=== PATIENT | female | born 1995 | race Caucasian/White ===

== ENCOUNTER 2017-12-10 07:11 | Inpatient (IN) | payer OTHER ==
[2017-12-10] VITALS (12 sets, daily range): BP systolic 103–119; BP diastolic 63–70; PULSE 20–92; RESP 18; TEMP 97.6–98.1; O2SAT 98–99
[~2017-12-10] VITALS: Ht 175.3 cm; Wt 83.0 kg
[~2017-12-10 07:11] MED LIST: D200CAP PO; DOCO200C PO; [UNRECOGNIZED DRUG - OTHER] PO
[2017-12-10] MEDS ORDERED: OXYTOCIN 30 UNITS-500ML PREMIX 500 ML IV ONE ×2 (07:30→15:00)
[2017-12-10] MEDS ORDERED: CITRIC ACID-SODIUM CITRATE LIQ 30 ML UDC PO SCH (07:30)
[2017-12-10] MEDS ORDERED: LACTATED RINGER'S 1000 ML INJ 1,000 ML IV SCH ×2 (07:30→19:53)
[2017-12-10] MEDS ORDERED: LIDOCAINE HCL 1% 50 ML VIAL INFIL PRN (07:30)
[2017-12-10] MEDS ORDERED: SODIUM CHLORID 0.9% 500 ML INJ 500 ML IV PRN (07:30)
[2017-12-10] MEDS ORDERED: OXYTOCIN 30 UNITS-500ML PREMIX 500 ML IV PRN ×2 (07:30→20:00)
[2017-12-10] MEDS ORDERED: MINERAL OIL 10 ML VIAL TOPICAL PRN (07:30)
[2017-12-10] MEDS ORDERED: LIDOCAINE HCL 1% 50 ML VIAL I-DERMAL PRN (07:30)
[2017-12-10] MEDS ORDERED: SODIUM CHLOR 0.9% 1000 ML INJ 1,000 ML IV PRN (07:50)
[2017-12-10] MEDS ORDERED: LIDOCAINE HCL 1% PF 5 ML AMPULE ONE (08:40)
[2017-12-10 09:14] LABS: AUTOMATED NEUTROPHIL # 5.5 TH/MM3 (1.8-7.7); BASOPHIL % 0.2 % (0.0-2.0); EOSINOPHIL # 0.1 TH/MM3 (0-0.4); EOSINOPHIL % 0.8 % (0.0-4.0); HEMATOCRIT 38.9 % (35.0-46.0); HEMOGLOBIN 13.2 GM/DL (11.6-15.3); LYMPH % 18.1 % (9.0-44.0); LYMPHOCYTE # 1.3 TH/MM3 (1.0-4.8); MEAN CELL VOLUME 87.7 FL (80.0-100.0); MEAN CORPUSCULAR HEMOGLOBIN 29.8 PG (27.0-34.0); MEAN PLATELET VOLUME 7.5 FL (7.0-11.0); MONO % 6.7 % (0.0-8.0); MONOCYTE # 0.5 TH/MM3 (0-0.9); NEUT % 74.2 % (16.0-70.0); PLATELET COUNT 195 TH/MM3 (150-450); RED BLOOD COUNT 4.43 MIL/MM3 (4.00-5.30); RED CELL DISTRIBUTION WIDTH 14.5 % (11.6-17.2); WHITE BLOOD COUNT 7.4 TH/MM3 (4.0-11.0)
[2017-12-10 09:25] LABS: BACTERIA, URINE OCC /hpf; BILIRUBIN, URINE NEG (NEG); BLOOD, URINE LARGE (NEG); GLUCOSE,URINE NEG (NEG); KETONE, URINE NEG (NEG); NITRITE,URINE NEG (NEG); SQUAMOUS EPITHELIAL CELL URINE 3 /hpf (0-5); URINE COLOR LIGHT-YELLOW (YELLW/STRAW); URINE LEUKOCYTE ESTERASE SMALL (NEG)
[2017-12-10] MEDS ORDERED: PREN29TA PO (09:53)
[2017-12-10] MEDS: LACTATED RINGER'S 1000 ML INJ 1,000 ML IV PRN ×2 (10:05→11:54)
[2017-12-10] MEDS ORDERED: fentaNYL 2MCG-BUPIV 0.125% INJ 100 ML ONE (11:03)
[2017-12-10] MEDS ORDERED: TERBUTALINE INJ 1 MG/ML AMP ONE (11:03)
[2017-12-10] MEDS ORDERED: ONDANSETRON HCL 4 MG/2 ML VIAL IV ONE (12:00)
[2017-12-10] MEDS ORDERED: OXYTOCIN 10 UNIT/ML AMP IV ONE (12:00)
[2017-12-10] MEDS ORDERED: LACTATED RINGER'S 1000 ML INJ 2,000 ML IV ONE (12:00)
[2017-12-10] MEDS ORDERED: LIDOCAINE 2%/EPINEPHrine PF 1:200,000 20ML SDV OTHER ONE (12:00)
[2017-12-10] MEDS ORDERED: DEXAMETHASONE SOD PHOS 4 MG/ML VIAL IV ONE (12:00)
[2017-12-10] MEDS ORDERED: ceFAZolin 2 GM PREMIX 50 ML IV SCH (13:30)
[2017-12-10] MEDS ORDERED: LACTATED RINGER'S 1000 ML IV ONE (13:30)
[2017-12-10] MEDS ORDERED: LACTATED RINGER'S 1000 ML IV SCH (13:30)
[2017-12-10] MEDS ORDERED: ACETAMINOPHEN 1000 MG/100 ML 100 ML IV ONE ×2 (14:17→15:00)
[2017-12-10] MEDS ORDERED: MORPHINE SULFATE PF 5 MG/10 ML VIAL ONE (14:17)
--- NOTE | 2017-12-10 14:57 | PD.OB.DELI ---
Procedure Note Section Procedure Pre Op Diagnosis: (1) Delivered by section (2) Labor and delivery affected by breech presentation Post Op Diagnosis: Performed by Nancy Carlos Procedure: Primary Low Transverse Sec Indication for delivery: malposition Informed consent obtained: For anesthesia, For procedure Confirmed correct: Patient, Procedure, Site, Time-out taken Anesthesia: Epidural Medication prior to procedure: As documented in eMAR Monitoring during procedure: Blood pressure monitoring, brainer, monitor Urinary catheter: Inserted using sterile technique, To dependent drainage Sterile preparation: Duraprep, In usual fashion Position: Supine with wedge to right side Operative Features Skin Incision: Pfannenstiel Uterine Incision: Low transverse w/knife / blunt ext Presentation: Brow presentation Delivery date: Dec 10, 2017 Delivery time: 14:56 Delivery of infant: Assisted Infant: Female One Minute : 8 Five Minute : 9 Weight: 7 3 Status of : Viable, Cord blood Placenta delivered: Intact Medications: Antibiotics Estimated blood loss: 600 Procedure tolerated: Well Maternal Condition: Stable Condition: Stable Procedure in detail dictated Nancy Carlos MD Dec 10, 2017 14:57
[2017-12-10] MEDS ORDERED: DOCUSATE SODIUM 50 MG/SENNA 8.6 MG TAB PO PRN (15:00)
[2017-12-10] MEDS ORDERED: SODIUM CHLORIDE 0.9% FLUSH 10 ML FLUSH IV FLUSH PRN (15:00)
[2017-12-10] MEDS ORDERED: ONDANSETRON HCL 4 MG/2 ML VIAL IV PUSH PRN (15:00)
[2017-12-10] MEDS ORDERED: ZOLPIDEM TARTRATE 5 MG TAB PO PRN (15:00)
--- NOTE | 2017-12-10 15:58 | MP ---
cc: Nancy Carlos MD DATE OF OPERATION: 12/10/2017 DATE OF PROCEDURE: 12/10/2017 PREOPERATIVE DIAGNOSIS: Active labor with incomplete breech diagnosed during labor. POSTOPERATIVE DIAGNOSIS: Active labor with incomplete breech diagnosed during labor. PROCEDURE PERFORMED: Primary low transverse segment section. ANESTHESIA: Epidural with Duramorph. SURGEON: Nancy Carlos MD SKETCH LINER: Fidelina Velez, MS3 FINDINGS: A living female with Apgars of 8 at 1 and 9 at 5 was delivered from an complete breech position, right sacrum anterior, with clear fluid and no body cord. Weight was 7 pounds 3 ounces. The scalp electrode actually appeared to be placed in the infant's scalp so it is possible that even with rupture of membranes this baby had gone from cephalic to breech during labor. The placenta was delivered manually intact with a 3-vessel cord. Sponge, instrument and needle count were correct. Blood loss was average. DESCRIPTION OF PROCEDURE: The patient was scheduled for an induction this morning, but came in in active labor at 6 cm. Membranes were ruptured and the 's head did appear to be cephalic. Later on, she had a deceleration and the nurses placed a scalp electrode; however, when I checked her at 8 cm, the baby was breech. This was explained to the family and she was prepared for . She was taken to the operating room. Her epidural was reinforced and Duramorph was placed. She already had a Aguilar catheter in, sequentials were placed, she was given 2 grams of Ancef, she was placed in dorsal supine position with weight off the vena cava, prepped and draped and a timeout was performed. After assuring adequate analgesia, a Pfannenstiel incision was made with a knife and carried down through to the rectus fascia. The rectus fascia was incised and taken off the rectus muscle. The rectus muscle was in the midline. The parietal peritoneum was entered sharply and a bladder flap was created. The uterus was incised and the incision was extended bluntly in the vertical fashion, encountering first the baby's foot from the right leg, which was in the cross-legged position. The left leg was delivered with classic Pinard maneuvers being straight up and then the arms were delivered and then the head. The cord was clamped x 2 after 45 seconds and cut and she was handed off to the neonatology team in attending. Her Apgars were 8 at 1 and 9 at 5. Her weight was 7 pounds 3 ounces. The placenta will be donated to [facility]. The uterus was exteriorized, closed with a chromic in a running interlocking fashion with a second horizontal imbricating layer. It was replaced in the abdominal cavity. Irrigation was performed. The rectus muscle was approximated. The fascia was closed with 1 Vicryl. The subcutaneous tissue was irrigated. The space was obliterated with 3-0 plain and the skin was closed with 4-0 Vicryl on a Jase needle. Estimated blood loss was average. Sponge, instrument and needle count were correct. She tolerated the procedure well and went to the recovery room stable. MD FEI Fernandez/NADER , 03:34 PM , 03:57 PM
[2017-12-10] MEDS ORDERED: IBUP-232 PO (17:42)
--- NOTE | 2017-12-10 17:43 | HHI.DCPOC ---
Discharge Care Plan Diagnosis: (1) Delivered by section Your Health Problems Are: delivery Report Symptoms to Your Doctor -Temperature above 100.5 degrees -Redness, of incision or excessive or foul smelling drainage -Unusual pain or calf pain -Increased vaginal bleeding -Painful or difficulty urinating -Feelings of extreme sadness or anxiety after 2 weeks Goals to Promote Your Health * To prevent worsening of your condition and complications * To maintain your health at the optimal level Directions to Meet Your Goals Take your medications as prescribed Follow your dietary instruction Follow activity as directed Ensure plenty of rest for recovery Drink fluids for hydration Keep your appointments as scheduled Take your immunizations and boosters as scheduled If your symptoms worsen call your PCP, if no PCP go to Urgent Care Center or Emergency Room Smoking is Dangerous to Your Health. Avoid second hand smoke Call the 24-hour crisis hotline for domestic abuse at Jeffrey Fish MD Dec 10, 2017 17:43
[2017-12-10] MEDS: SODIUM CHLORIDE 0.9% FLUSH 10 ML FLUSH IV FLUSH SCH (21:00)
[2017-12-11] VITALS (9 sets, daily range): BP systolic 105–112; BP diastolic 53–63; PULSE 68–92; RESP 16–20; TEMP 98.2–98.9; O2SAT 96–98
[2017-12-11 06:00] LABS: AUTOMATED NEUTROPHIL # 12.1 TH/MM3 (1.8-7.7); BASOPHIL % 0.1 % (0.0-2.0); HEMOGLOBIN 11.9 GM/DL (11.6-15.3); LYMPH % 8.2 % (9.0-44.0); LYMPHOCYTE # 1.1 TH/MM3 (1.0-4.8); MEAN CELL VOLUME 87.9 FL (80.0-100.0); MEAN CORPUSCULAR HEMOGLOBIN 29.8 PG (27.0-34.0); MEAN CORPUSCULAR HGB CONC 33.9 % (32.0-36.0); MEAN PLATELET VOLUME 7.7 FL (7.0-11.0); MONO % 3.7 % (0.0-8.0); MONOCYTE # 0.5 TH/MM3 (0-0.9); PLATELET COUNT 166 TH/MM3 (150-450); RED BLOOD COUNT 3.99 MIL/MM3 (4.00-5.30); RED CELL DISTRIBUTION WIDTH 14.3 % (11.6-17.2); WHITE BLOOD COUNT 13.8 TH/MM3 (4.0-11.0)
[2017-12-11] MEDS: IBUPROFEN 600 MG TAB PO PRN ×3 (07:10→22:33)
[2017-12-11] MEDS: oxyCODONE/ACETAMINOPHEN 5 MG/325 MG TAB PO PRN ×4 (07:11→22:32)
--- NOTE | 2017-12-11 08:07 | HHI.OB ---
Subjective Post Operative Day: 1 Remarks doing very well with nursing pain controlled will get TDAP Objective Vitals/I&O Vital Signs Date Time Temp Pulse Resp B/P (MAP) Pulse Ox O2 Delivery O2 Flow Rate FiO2 12/11/17 04:50 18 12/11/17 04:00 98.2 92 16 105/63 (77) 98 12/11/17 01:17 18 12/11/17 00:40 16 12/11/17 00:00 98.2 18 96 12/11/17 00:00 80 105/53 (70) 12/10/17 23:00 18 12/10/17 22:15 18 12/10/17 21:00 20 18 12/10/17 20:00 98.1 68 18 117/70 (86) 98 12/10/17 16:46 79 18 112/64 (80) 99 12/10/17 16:46 98.1 12/10/17 11:50 91 112/66 (81) 12/10/17 11:50 86 12/10/17 11:49 97.6 12/10/17 11:45 91 115/66 (82) 12/10/17 11:45 89 12/10/17 11:40 88 118/63 (81) 12/10/17 11:40 92 12/10/17 11:35 85 12/10/17 11:35 88 119/64 (82) 12/10/17 11:30 88 12/10/17 11:30 83 112/65 (81) 12/10/17 09:13 64 103/64 (77) Result Diagram: 12/11/17 0508 Objective Remarks GENERAL: Well-nourished, well-developed patient. CARDIOVASCULAR: Regular rate and rhythm without murmurs, gallops, or rubs. RESPIRATORY: Breath sounds equal bilaterally. No accessory muscle use. ABDOMEN/GI: Abdomen soft, non-tender, bowel sounds present. bandage: Clean, dry and intact. Fundus: Firm, non-tender at umbilicus. GENITOURINARY: Light to moderate bleeding. EXTREMITIES: No cyanosis or edema, non-tender, without signs of DVT. Medications and IVs Current Medications Medications (Trade) Dose Ordered Sig/Tim Route Start Time Stop Time Status Last Admin Sodium Chloride 1,000 ml @ 100 mls/hr Q10H PRN IV 12/10/17 07:50 (Xylocaine 1% Inj (50 ml)) 0.1 ml UNSCH X1 PRN I-DERMAL 12/10/17 07:30 12/13/17 07:29 (Bicitra Liq) 30 ml RETURNER PO 12/10/17 07:30 12/14/17 07:29 12/10/17 13:22 (Xylocaine 1% Inj (50 ml)) 10 ml UNSCH X1 PRN INFIL 12/10/17 07:30 12/12/17 07:29 (Muri-Lube Oil) 10 ml UNSCH PRN TOPICAL 12/10/17 07:30 Oxytocin 500 ml @ 0 mls/hr TITRATE PRN IV 12/10/17 07:30 Lactated Ringer's 1,000 ml @ 150 mls/hr Q6H40M IV 12/10/17 13:30 Cefazolin Sodium/ Dextrose 50 ml @ 100 mls/hr RETURNER IV 12/10/17 13:30 12/13/17 13:29 12/10/17 13:23 Lactated Ringer's 1,000 ml @ 100 mls/hr Q10H IV 12/10/17 19:53 12/11/17 15:52 12/10/17 21:00 Oxytocin 500 ml @ 100 mls/hr UNSCH X1 PRN IV 12/10/17 20:00 12/11/17 19:59 (NS Flush) 2 ml BID IV FLUSH 12/10/17 21:00 (NS Flush) 2 ml UNSCH PRN IV FLUSH 12/10/17 15:00 (Mylicon Chew) 80 mg QID PRN PO 12/10/17 15:00 (Motrin) 600 mg Q6H PRN PO 12/10/17 15:00 12/11/17 07:10 (Percocet 5-325 Mg) 1 tab Q4H PRN PO 12/10/17 15:00 12/11/17 07:11 (Percocet 5-325 Mg) 2 tab Q4H PRN PO 12/10/17 15:00 (Sonia-Colace) 2 tab Q12H PRN PO 12/10/17 15:00 (Ambien) 5 mg HS PRN PO 12/10/17 15:00 (M-M-R Ii Inj) 0.5 ml ONCE ONCE SQ 12/11/17 16:00 12/11/17 16:01 (Boostrix Inj) 0.5 ml ONCE ONCE IM 12/11/17 16:00 12/11/17 16:01 (Zofran Inj) 4 mg Q6H PRN IV PUSH 12/10/17 15:00 Nancy Carlos MD Dec 11, 2017 08:07
--- NOTE | 2017-12-11 08:20 | HHI.OB ---
Subjective Post Operative Day: 1 Remarks Overall doing well, having concerns about pain control, fully just removed, has not ambulated yet, having itching following her spinal, tolerating p.o. no nausea or vomiting. Objective Vitals/I&O Vital Signs Date Time Temp Pulse Resp B/P (MAP) Pulse Ox O2 Delivery O2 Flow Rate FiO2 12/11/17 04:50 18 12/11/17 04:00 98.2 92 16 105/63 (77) 98 12/11/17 01:17 18 12/11/17 00:40 16 12/11/17 00:00 98.2 18 96 12/11/17 00:00 80 105/53 (70) 12/10/17 23:00 18 12/10/17 22:15 18 12/10/17 21:00 20 18 12/10/17 20:00 98.1 68 18 117/70 (86) 98 12/10/17 16:46 79 18 112/64 (80) 99 12/10/17 16:46 98.1 12/10/17 11:50 91 112/66 (81) 12/10/17 11:50 86 12/10/17 11:49 97.6 12/10/17 11:45 91 115/66 (82) 12/10/17 11:45 89 12/10/17 11:40 88 118/63 (81) 12/10/17 11:40 92 12/10/17 11:35 85 12/10/17 11:35 88 119/64 (82) 12/10/17 11:30 88 12/10/17 11:30 83 112/65 (81) 12/10/17 09:13 64 103/64 (77) Result Diagram: 12/11/17 0508 Objective Remarks GENERAL: Well-nourished, well-developed patient. CARDIOVASCULAR: Regular rate and rhythm without murmurs, gallops, or rubs. RESPIRATORY: Breath sounds equal bilaterally. No accessory muscle use. ABDOMEN/GI: Abdomen soft, non-tender, bowel sounds present. bandage: Clean, dry and intact. Fundus: Firm, non-tender at umbilicus. GENITOURINARY: Light to moderate bleeding. EXTREMITIES: No cyanosis or edema, non-tender, without signs of DVT. Medications and IVs Current Medications Medications (Trade) Dose Ordered Sig/Tim Route Start Time Stop Time Status Last Admin Sodium Chloride 1,000 ml @ 100 mls/hr Q10H PRN IV 12/10/17 07:50 (Xylocaine 1% Inj (50 ml)) 0.1 ml UNSCH X1 PRN I-DERMAL 12/10/17 07:30 12/13/17 07:29 (Bicitra Liq) 30 ml SHIPYARD PAINTER HELPER PO 12/10/17 07:30 12/14/17 07:29 12/10/17 13:22 (Xylocaine 1% Inj (50 ml)) 10 ml UNSCH X1 PRN INFIL 12/10/17 07:30 12/12/17 07:29 (Muri-Lube Oil) 10 ml UNSCH PRN TOPICAL 12/10/17 07:30 Oxytocin 500 ml @ 0 mls/hr TITRATE PRN IV 12/10/17 07:30 Lactated Ringer's 1,000 ml @ 150 mls/hr Q6H40M IV 12/10/17 13:30 Cefazolin Sodium/ Dextrose 50 ml @ 100 mls/hr SHIPYARD PAINTER HELPER IV 12/10/17 13:30 12/13/17 13:29 12/10/17 13:23 Lactated Ringer's 1,000 ml @ 100 mls/hr Q10H IV 12/10/17 19:53 12/11/17 15:52 12/10/17 21:00 Oxytocin 500 ml @ 100 mls/hr UNSCH X1 PRN IV 12/10/17 20:00 12/11/17 19:59 (NS Flush) 2 ml BID IV FLUSH 12/10/17 21:00 (NS Flush) 2 ml UNSCH PRN IV FLUSH 12/10/17 15:00 (Mylicon Chew) 80 mg QID PRN PO 12/10/17 15:00 (Motrin) 600 mg Q6H PRN PO 12/10/17 15:00 12/11/17 07:10 (Percocet 5-325 Mg) 1 tab Q4H PRN PO 12/10/17 15:00 12/11/17 07:11 (Percocet 5-325 Mg) 2 tab Q4H PRN PO 12/10/17 15:00 (Sonia-Colace) 2 tab Q12H PRN PO 12/10/17 15:00 (Ambien) 5 mg HS PRN PO 12/10/17 15:00 (M-M-R Ii Inj) 0.5 ml ONCE ONCE SQ 12/11/17 16:00 12/11/17 16:01 (Boostrix Inj) 0.5 ml ONCE ONCE IM 12/11/17 16:00 12/11/17 16:01 (Zofran Inj) 4 mg Q6H PRN IV PUSH 12/10/17 15:00 Assessment/Plan Assessment and Plan 22-year-old status post primary LTCS at 38w5d secondary to malpresentation. 1. POD #1: Afebrile, vital signs stable, output appropriate, AM hemoglobin noted and appropriate, continue routine postoperative and care, encourage ambulation today, and educated her to ask for 2 tabs of percocet if pain not well controlled with 1. Will add vistaril for itching, anticipate discharge home in the next 48 hours. - Female Jeffrey Fish MD Dec 11, 2017 08:19
[2017-12-11] MEDS ORDERED: hydrOXYzine PAMOATE 25 MG CAP PO PRN (08:30)
[2017-12-11] MEDS ORDERED: MEASLES, MUMPS, RUBELLA VACCINE 0.5 ML VIAL SQ ONE (16:00)
[2017-12-11] MEDS ORDERED: DIPHTH/TETANUS/ACEL PERTUSSIS (BOOSTER) 0.5 ML VIAL/PFS IM ONE (16:00)
[2017-12-11] MEDS: SODIUM CHLORIDE 0.9% FLUSH 10 ML FLUSH IV FLUSH SCH (21:00)
[2017-12-11] MEDS: DOCUSATE SODIUM 50 MG/SENNA 8.6 MG TAB PO SCH (22:32)
[2017-12-12] MEDS: oxyCODONE/ACETAMINOPHEN 5 MG/325 MG TAB PO PRN ×6 (00:16→23:51)
[2017-12-12] MEDS: IBUPROFEN 600 MG TAB PO PRN ×4 (04:10→23:51)
--- NOTE | 2017-12-12 08:37 | HHI.OB ---
Subjective Post Operative Day: 2 Remarks Doing well, pain still an issue for her, however she seems to be ambulating in the room, in no obvious discomfort, breast-feeding, vaginal bleeding less than menses, tolerating a diet, voiding. She is nursing her child in the chair during this encounter. Objective Vitals/I&O Vital Signs Date Time Temp Pulse Resp B/P (MAP) Pulse Ox O2 Delivery O2 Flow Rate FiO2 12/11/17 20:00 98.3 68 18 105/55 (72) 96 12/11/17 15:00 18 Result Diagram: 12/11/17 0508 Objective Remarks GENERAL: Well-nourished, well-developed patient. CARDIOVASCULAR: Regular rate and rhythm without murmurs, gallops, or rubs. RESPIRATORY: Breath sounds equal bilaterally. No accessory muscle use. ABDOMEN/GI: Abdomen soft, non-tender, bowel sounds present. GENITOURINARY: Light to moderate bleeding. EXTREMITIES: No cyanosis or edema, non-tender, without signs of DVT. Medications and IVs Current Medications Medications (Trade) Dose Ordered Sig/Tim Route Start Time Stop Time Status Last Admin Sodium Chloride 1,000 ml @ 100 mls/hr Q10H PRN IV 12/10/17 07:50 (Xylocaine 1% Inj (50 ml)) 0.1 ml UNSCH X1 PRN I-DERMAL 12/10/17 07:30 12/13/17 07:29 (Bicitra Liq) 30 ml DIRECTOR OF AVIATION PO 12/10/17 07:30 12/14/17 07:29 12/10/17 13:22 (Muri-Lube Oil) 10 ml UNSCH PRN TOPICAL 12/10/17 07:30 Oxytocin 500 ml @ 0 mls/hr TITRATE PRN IV 12/10/17 07:30 Lactated Ringer's 1,000 ml @ 150 mls/hr Q6H40M IV 12/10/17 13:30 Cefazolin Sodium/ Dextrose 50 ml @ 100 mls/hr DIRECTOR OF AVIATION IV 12/10/17 13:30 12/13/17 13:29 12/10/17 13:23 (NS Flush) 2 ml BID IV FLUSH 12/10/17 21:00 12/11/17 21:00 (NS Flush) 2 ml UNSCH PRN IV FLUSH 12/10/17 15:00 (Mylicon Chew) 80 mg QID PRN PO 12/10/17 15:00 (Motrin) 600 mg Q6H PRN PO 12/10/17 15:00 12/12/17 04:10 (Percocet 5-325 Mg) 1 tab Q4H PRN PO 12/10/17 15:00 12/12/17 00:16 (Percocet 5-325 Mg) 2 tab Q4H PRN PO 12/10/17 15:00 12/12/17 04:11 (Ambien) 5 mg HS PRN PO 12/10/17 15:00 (Zofran Inj) 4 mg Q6H PRN IV PUSH 12/10/17 15:00 (Vistaril) 25 mg Q6H PRN PO 12/11/17 08:30 (Sonia-Colace) 2 tab Q12HR PO 12/11/17 15:00 12/11/17 22:32 Assessment/Plan Assessment and Plan 22-year-old status post primary LTCS at 38w5d secondary to malpresentation. 1. POD #2: Afebrile, vital signs stable, continue routine postop care, anticipate discharge home tomorrow. If patient desires may increase Percocet to 7.5's. - Female Jeffrey Fish MD Dec 12, 2017 08:36
[2017-12-12 08:38] VITALS: BP 112/72; PULSE 80; RESP 20; TEMP 97.9
[2017-12-12] MEDS: DOCUSATE SODIUM 50 MG/SENNA 8.6 MG TAB PO SCH ×2 (09:08→23:51)
[2017-12-12] MEDS: SIMETHICONE 80 MG CHEWABLE TAB PO PRN ×2 (16:52→23:51)
[2017-12-12 19:53] VITALS: BP 135/78; PULSE 89; RESP 18; TEMP 97.6
[2017-12-13] MEDS: oxyCODONE/ACETAMINOPHEN 5 MG/325 MG TAB PO PRN ×2 (00:56→06:24)
[2017-12-13] MEDS: SIMETHICONE 80 MG CHEWABLE TAB PO PRN ×2 (06:25→21:31)
[2017-12-13] MEDS: IBUPROFEN 600 MG TAB PO PRN (06:25)
[2017-12-13 08:00] VITALS: BP 118/74; PULSE 87; RESP 16; TEMP 97.7
[2017-12-13] MEDS ORDERED: PERC5TAB12 PO (08:24)
--- NOTE | 2017-12-13 08:39 | HHI.OB ---
Subjective Post Operative Day: 3 Remarks doing fairly well, pain control is still an issue, difficult to ambulate due to ambulate, pain L>R lower quadrant, baby up all night, voiding, TPO, no n/v, no flatus or BM yet, VB < menses Objective Vitals/I&O Vital Signs Date Time Temp Pulse Resp B/P (MAP) Pulse Ox O2 Delivery O2 Flow Rate FiO2 12/12/17 19:53 97.6 89 18 135/78 (97) 12/12/17 08:38 80 112/72 (85) 12/12/17 08:38 97.9 20 Result Diagram: 12/11/17 0508 Objective Remarks GENERAL: Well-nourished, well-developed patient. CARDIOVASCULAR: Regular rate and rhythm without murmurs, gallops, or rubs. RESPIRATORY: Breath sounds equal bilaterally. No accessory muscle use. ABDOMEN/GI: Abdomen soft, non-tender, bowel sounds present. Incision: C/D/I GENITOURINARY: Light to moderate bleeding. EXTREMITIES: No cyanosis or edema, non-tender, without signs of DVT. Medications and IVs Current Medications Medications (Trade) Dose Ordered Sig/Tim Route Start Time Stop Time Status Last Admin Sodium Chloride 1,000 ml @ 100 mls/hr Q10H PRN IV 12/10/17 07:50 (Bicitra Liq) 30 ml CASTING AGENT PO 12/10/17 07:30 12/14/17 07:29 12/10/17 13:22 (Muri-Lube Oil) 10 ml UNSCH PRN TOPICAL 12/10/17 07:30 Oxytocin 500 ml @ 0 mls/hr TITRATE PRN IV 12/10/17 07:30 Lactated Ringer's 1,000 ml @ 150 mls/hr Q6H40M IV 12/10/17 13:30 Cefazolin Sodium/ Dextrose 50 ml @ 100 mls/hr CASTING AGENT IV 12/10/17 13:30 12/13/17 13:29 12/10/17 13:23 (NS Flush) 2 ml BID IV FLUSH 12/10/17 21:00 12/11/17 21:00 (NS Flush) 2 ml UNSCH PRN IV FLUSH 12/10/17 15:00 (Mylicon Chew) 80 mg QID PRN PO 12/10/17 15:00 12/13/17 06:25 (Percocet 5-325 Mg) 1 tab Q4H PRN PO 12/10/17 15:00 12/13/17 00:56 (Percocet 5-325 Mg) 2 tab Q4H PRN PO 12/10/17 15:00 12/13/17 06:24 (Ambien) 5 mg HS PRN PO 12/10/17 15:00 (Zofran Inj) 4 mg Q6H PRN IV PUSH 12/10/17 15:00 (Vistaril) 25 mg Q6H PRN PO 12/11/17 08:30 (Sonia-Colace) 2 tab Q12HR PO 12/11/17 15:00 12/12/17 23:51 (Motrin) 600 mg Q6H PO 12/13/17 09:00 UNV Assessment/Plan Assessment and Plan 22-year-old status post primary LTCS at 38w5d secondary to malpresentation. 1. POD #3: Afebrile, vital signs stable, pain control is suboptimal, discussed options yesterday and was hesitant, feels more comfortable attempting these today, increase PRN perc to 7.5, schedule motrin, nursing to provide abdominal binder. Anticipate d/c home tomorrow. - Female Jeffrey Fish MD Dec 13, 2017 08:39
[2017-12-13] MEDS ORDERED: oxyCODONE/ACETAMINOPHEN 7.5 MG/325 MG TAB PO PRN (08:45)
[2017-12-13] MEDS: IBUPROFEN 600 MG TAB PO SCH ×2 (13:45→20:01)
[2017-12-13 20:00] VITALS: BP 114/71; PULSE 72; RESP 18; TEMP 97.9
[2017-12-13] MEDS: oxyCODONE/ACETAMINOPHEN 7.5 MG/325 MG TAB PO PRN (20:01)
[2017-12-13] MEDS: DOCUSATE SODIUM 50 MG/SENNA 8.6 MG TAB PO SCH (21:31)
[2017-12-14] MEDS: oxyCODONE/ACETAMINOPHEN 7.5 MG/325 MG TAB PO PRN ×2 (03:21→07:49)
[2017-12-14] MEDS: IBUPROFEN 600 MG TAB PO SCH (07:49)
[2017-12-14 08:00] VITALS: BP 115/73; PULSE 86; RESP 20; TEMP 98; O2SAT 97
--- NOTE | 2017-12-14 08:53 | HHI.OB ---
Subjective Post Operative Day: 4 Remarks DOing much better still has pain BP good difficulty with latching but production good Objective Vitals/I&O Vital Signs Date Time Temp Pulse Resp B/P (MAP) Pulse Ox O2 Delivery O2 Flow Rate FiO2 12/13/17 20:00 97.9 72 18 114/71 (85) Result Diagram: 12/11/17 0507 Objective Remarks GENERAL: Well-nourished, well-developed patient. CARDIOVASCULAR: Regular rate and rhythm without murmurs, gallops, or rubs. RESPIRATORY: Breath sounds equal bilaterally. No accessory muscle use. ABDOMEN/GI: Abdomen soft, non-tender, bowel sounds present. Incision: C/D/I GENITOURINARY: Light to moderate bleeding. EXTREMITIES: No cyanosis or edema, non-tender, without signs of DVT. Medications and IVs Current Medications Medications (Trade) Dose Ordered Sig/Tim Route Start Time Stop Time Status Last Admin Sodium Chloride 1,000 ml @ 100 mls/hr Q10H PRN IV 12/10/17 07:50 (Muri-Lube Oil) 10 ml UNSCH PRN TOPICAL 12/10/17 07:30 Oxytocin 500 ml @ 0 mls/hr TITRATE PRN IV 12/10/17 07:30 Lactated Ringer's 1,000 ml @ 150 mls/hr Q6H40M IV 12/10/17 13:30 (NS Flush) 2 ml BID IV FLUSH 12/10/17 21:00 12/11/17 21:00 (NS Flush) 2 ml UNSCH PRN IV FLUSH 12/10/17 15:00 (Mylicon Chew) 80 mg QID PRN PO 12/10/17 15:00 12/13/17 21:31 (Ambien) 5 mg HS PRN PO 12/10/17 15:00 (Zofran Inj) 4 mg Q6H PRN IV PUSH 12/10/17 15:00 (Vistaril) 25 mg Q6H PRN PO 12/11/17 08:30 (Sonia-Colace) 2 tab Q12HR PO 12/11/17 15:00 12/13/17 21:31 (Motrin) 600 mg Q6H PO 12/13/17 12:00 12/14/17 07:49 (Percocet 7.5-325 Mg) 1 tab Q4H PRN PO 12/13/17 08:45 12/14/17 07:49 (Percocet 7.5-325 Mg) 2 tab Q4H PRN PO 12/13/17 08:45 12/13/17 13:45 Assessment/Plan Assessment and Plan 22-year-old status post primary LTCS at 38w5d secondary to malpresentation. 1. POD #3: Afebrile, vital signs stable, pain control is suboptimal, discussed options yesterday and was hesitant, feels more comfortable attempting these today, increase PRN perc to 7.5, schedule motrin, nursing to provide abdominal binder. Anticipate d/c home tomorrow. - Female POD 4 home with percocet and motrin and return Thrusday pm Nancy Carlos MD Dec 14, 2017 08:53
[2017-12-14] MEDS ORDERED: IBUP-232 PO (08:55)
[2017-12-14] MEDS ORDERED: OXYC1TAB35 PO (08:56)
[2017-12-14] MEDS ORDERED: POLYETHYLENE GLYCOL 17 GM PKG PO ONE (09:00)
== END 2017-12-14 14:40 | disposition home or self-care (01) | DRG 766 ==
LOC: HOBED 07:11 → H2EB 07:19 → H1EA 16:25
PROVIDERS: ADMIT Obstetrics & Gynecology; ATTEND Obstetrics & Gynecology
PROC: 10D00Z1 Extraction of Products of Conception, Low, Open Approach (ICD-10-PCS; principal; 2017-12-10)
PROC: 10907ZC Drainage of Amniotic Fluid, Therapeutic from Products of Conception, Via Natural or Artificial Opening (ICD-10-PCS; 2017-12-10)
DX: O32.1XX0 Maternal care for breech presentation, not applicable or unspecified (principal); O76 Abnormality in fetal heart rate and rhythm complicating labor and delivery; Z37.0 Single live birth; Z3A.38 38 weeks gestation of pregnancy
CPT/HCPCS: 59025; 76815; 80307; 81001; 85025; 86850; 86900; 86901; 87640; 87641; 90715; 99283; G0481; J0131; J0690; J1100; J2274; J2405; J2590; J3010; J3105; J7120